=== PATIENT | male | born 1990 | race Caucasian/White ===

== ENCOUNTER 2016-10-03 02:21 | Inpatient (IN) | payer OTHER ==
[2016-10-03 03:44] VITALS: BP 126/79; PULSE 61; RESP 16; TEMP 97.6; O2SAT 99
[2016-10-03] MEDS ORDERED: LORazepam 2 MG/ML VIAL IV PUSH PRN ×4 (03:45)
[2016-10-03] MEDS ORDERED: LORazepam 1 MG TAB PO PRN ×2 (03:45)
[2016-10-03] MEDS ORDERED: ACETAMINOPHEN 325 MG TAB PO PRN ×2 (03:45→12:45)
[2016-10-03] MEDS ORDERED: FLUMAZENIL 0.5 MG/5 ML VIAL IV PUSH PRN (03:45)
[2016-10-03] MEDS ORDERED: LORazepam 2 MG TAB PO PRN (03:45)
[2016-10-03] MEDS ORDERED: LORazepam 2 MG/ML VIAL IM PRN (03:45)
[2016-10-03] MEDS ORDERED: MAGNESIUM HYDROXIDE SUSP 30 ML CUP PO PRN ×2 (03:45→12:45)
[2016-10-03] MEDS ORDERED: ALUMINUM/MAGNESIUM/SIMETH 30 ML CUP PO PRN ×2 (03:45→12:45)
[2016-10-03] MEDS: NICOTINE 21 MG/24 HR PATCH T-DERMAL SCH (08:40)
[2016-10-03] MEDS ORDERED: hydrOXYzine HCL 50 MG TAB PO PRN (12:45)
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
[2016-10-03 16:49] VITALS: BP 135/69; PULSE 70; RESP 18; TEMP 98.2; O2SAT 97
[2016-10-03] MEDS: REMOVE OLD NICOTINE PATCH T-DERMAL SCH (21:00)
[2016-10-03] MEDS: MIRTAZAPINE 15 MG TAB PO SCH (21:47)
[2016-10-03] MEDS: diphenhydrAMINE HCL 50 MG CAP PO PRN (21:47)
[2016-10-04 05:32] VITALS: BP 110/77; PULSE 86; RESP 17; TEMP 97.9
[2016-10-04] MEDS: NICOTINE 21 MG/24 HR PATCH T-DERMAL SCH (07:33)
--- NOTE | 2016-10-04 13:12 | HHI.PYPN ---
Subjective Remarks Patient seen in his room with nurse azeb, chart review, patient compliant medications. Patient continues to isolate in his room with minimal interaction socialization of the unit. He continues vague about suicidality, there is been no behavioral problem. He denies voices. For now continue treatment Review of Systems Except as stated in HPI: all other systems reviewed are Neg Objective Alert: Yes [place]: Person, Place Mood: Calm, Depressed Affect: Restricted Memory Intact: Comment (fair) Hallucinations: Other (denies) Delusions: No Delusion Type: Other (vigilant) Suicidal: Ideation (vaguely confirms) Homicidal: Ideation (denies) Insight/Judgment Poor Vitals/IOs Vital Signs Date Time Temp Pulse Resp B/P Pulse Ox O2 Delivery O2 Flow Rate FiO2 10/04/16 05:32 97.9 86 17 110/77 10/03/16 16:49 97 Assessment & Plan Problem List: (1) Intermittent explosive disorder in adult ICD Code: F63.81 (2) Major depressive disorder, recurrent severe without psychotic features ICD Code: F33.2 Assessment & Plan Estimated LOS: days patient continues depressed vaguely suicidal, this behaviors been appropriate. Justification for Cont. Inpt. At this time patient would decompensate then placed in the lower level of care Discharge Planning To be determined Request HC Surrog/Guard Advoc?: No Akil Atkinson MD Oct 04, 2016 13:11
[2016-10-04 13:32] LABS: ANION GAP 5 MEQ/L (5-15); BICARBONATE 30.2 MEQ/L (21.0-32.0); BLOOD UREA NITROGEN 15 MG/DL (7-18); CHLORIDE 105 MEQ/L (98-107); GLOMERULAR FILTRATION RATE 93 ML/MIN (>89); POTASSIUM 4.3 MEQ/L (3.5-5.1); SODIUM (NA) 140 MEQ/L (136-145)
[2016-10-04 13:36] LABS: LDL CHOLESTEROL 69 MG/DL (0-99)
[2016-10-04 16:25] LABS: HEMOGLOBIN A1a 0.9 %; HEMOGLOBIN A1b 1.2 %; HEMOGLOBIN Ao 86.6 %; HEMOGLOBIN F 0.2 %; HEMOGLOBIN P3 3.5 %
[2016-10-04 17:59] VITALS: BP 118/60; PULSE 88; RESP 18; TEMP 98; O2SAT 96
[2016-10-04] MEDS: MIRTAZAPINE 15 MG TAB PO SCH (20:30)
[2016-10-04] MEDS: REMOVE OLD NICOTINE PATCH T-DERMAL SCH (20:31)
[2016-10-05 06:20] VITALS: BP 117/66; PULSE 61; RESP 16; TEMP 97.5; O2SAT 100
[2016-10-05] MEDS: NICOTINE 21 MG/24 HR PATCH T-DERMAL SCH (08:33)
--- NOTE | 2016-10-05 16:16 | HHI.PYPN ---
Subjective Remarks Patient was seen and case discussed with nursing. Patient is pleasant and cooperative with exam. He is expressive and discusses various life stressors such as his grandmother dying. His he has been depressed and he had a suicide attempt via amphetamine overdose. Says he does not regularly use amphetamine but does use marijuana. Per nursing he is very seclusive to his room. Continues to have vague suicidal thoughts with no intent or plan. Mood is depressed Objective Alert: Yes [place]: Person, Place Mood: Calm, Depressed Affect: Blunted Memory Intact: Comment (fair) Hallucinations: Other (denies) Delusions: No Delusion Type: Other (vigilant) Suicidal: Ideation (vaguely confirms) Homicidal: Ideation (denies) Insight/Judgment Poor Vitals/IOs Vital Signs Date Time Temp Pulse Resp B/P Pulse Ox O2 Delivery O2 Flow Rate FiO2 10/05/16 06:20 97.5 61 16 117/66 100 Assessment & Plan Problem List: (1) Intermittent explosive disorder in adult ICD Code: F63.81 (2) Major depressive disorder, recurrent severe without psychotic features ICD Code: F33.2 Assessment & Plan Continue current treatment plan Justification for Cont. Inpt. Patient would decompensate in a less restrictive setting Request HC Surrog/Guard Advoc?: No Panda Montenegro DO Oct 05, 2016 16:16
[2016-10-05] MEDS: REMOVE OLD NICOTINE PATCH T-DERMAL SCH (21:00)
[2016-10-05] MEDS: MIRTAZAPINE 15 MG TAB PO SCH (21:09)
[2016-10-05] MEDS: diphenhydrAMINE HCL 50 MG CAP PO PRN (21:09)
[2016-10-06 05:48] VITALS: BP 96/66; PULSE 68; RESP 18; TEMP 97.5; O2SAT 97
--- NOTE | 2016-10-06 12:32 | HHI.PYPN ---
Subjective Remarks Patient was seen and case discussed with nursing. Patient is pleasant and cooperative with exam. He reports any stressor wherein his grandmother asked away last night. Told the nurse earlier he is "living in chaos." Continues to be way down the various life stressors. Affect is anxious. Denies suicidal or homicidal ideation intent or plan. Tolerating his medications well Objective Alert: Yes [place]: Person, Place Mood: Calm, Depressed Affect: Blunted Memory Intact: Comment (fair) Hallucinations: Other (denies) Delusions: No Delusion Type: Other (vigilant) Suicidal: Ideation (denies) Homicidal: Ideation (denies) Insight/Judgment Poor Vitals/IOs Vital Signs Date Time Temp Pulse Resp B/P Pulse Ox O2 Delivery O2 Flow Rate FiO2 10/06/16 05:48 97.5 68 18 96/66 97 Assessment & Plan Problem List: (1) Intermittent explosive disorder in adult ICD Code: F63.81 (2) Major depressive disorder, recurrent severe without psychotic features ICD Code: F33.2 Assessment & Plan Continue current treatment plan Justification for Cont. Inpt. Patient would decompensate in a less restrictive setting Request HC Surrog/Guard Advoc?: No Panda Montenegro DO Oct 06, 2016 12:32
[2016-10-06 16:56] VITALS: BP 111/64; PULSE 74; RESP 18; TEMP 97.8; O2SAT 98
[2016-10-06] MEDS: diphenhydrAMINE HCL 50 MG CAP PO PRN (20:39)
[2016-10-06] MEDS: MIRTAZAPINE 15 MG TAB PO SCH (20:39)
[2016-10-06] MEDS: REMOVE OLD NICOTINE PATCH T-DERMAL SCH (20:41)
[2016-10-07 05:29] VITALS: BP 104/78; PULSE 77; RESP 16; TEMP 97.4; O2SAT 100
--- NOTE | 2016-10-07 11:09 | PD.TTN ---
Present for Treatment Team Treatment Team Staff: Provider (Dr. Atkinson), Nurse (Jonathan), Psych Therapist (FABIOLA Becerra), Occupational Therapist, Other Clinician (rec. María therapy) Patient Problems 1. Discharge planning 2. Medication compliance 3. Knowledge deficit 4. Lack of coping skills Progress Toward Goals Provider Input: Dr. Atkinson requested an update regarding patient's mental status, medication management and compliance, and plan for discharge. Nurse Input: Nurse Jonathan reported the patient remains compliant with medications, in good behavioral control, and continues to self-isolate in his room. Psych Therapist Input: Counselor reported the patient presented alert and oriented to person, place, day, and situation. Patient denied any side effects from medications and offered no complaints related to treatment. Patient reported his mood is much improved and that he is ready to be discharged home. Counselor strongly encouraged patient to attend all follow-up psychiatric appointments. Other Clinican Input: María reported the patient attends select groups and is pleasant and cooperative. Documentation Scribe: FABIOLA Becerra Date Resolved: Oct 07, 2016 Mary Portillo Oct 07, 2016 11:09
[2016-10-07] MEDS ORDERED: CARB100C PO (14:51)
[2016-10-07] MEDS ORDERED: MIRTA15 PO (14:51)
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
== END 2016-10-07 16:09 | disposition home or self-care (01) | DRG 883 ==
LOC: H260 03:25
PROVIDERS: ADMIT Psychiatry & Neurology Psychiatry; ATTEND Psychiatry & Neurology Psychiatry
DX: F63.81 Intermittent explosive disorder (principal); F33.2 Major depressive disorder, recurrent severe without psychotic features; R45.851 Suicidal ideations; Z91.5 Personal history of self-harm; Z81.8 Family history of other mental and behavioral disorders; Z62.810 Personal history of physical and sexual abuse in childhood; F12.90 Cannabis use, unspecified, uncomplicated; G47.00 Insomnia, unspecified
CPT/HCPCS: 80048; 80061; 83036; Q0163